=== PATIENT | male | born 1995 | race Caucasian/White ===

== ENCOUNTER 2021-02-01 19:20 | Emergency (ER) | payer OTHER ==
--- NOTE | 2021-02-01 20:40 | ED ---
General Adult HPI - General Source: family, RN notes reviewed Mode of arrival: ambulatory Limitations: language barrier <Ralph Murillo - Last Filed: 02/01/21 20:38> - General Source: patient, family (Parents), RN notes reviewed - History of Present Illness -: days(s) (6) Location: mouth (Sore throat) Associated Symptoms: cough, fever/chills, loss of appetite, other Treatments Prior to Arrival: other (80 minutes and) <Atilio Albright - Last Filed: 02/01/21 23:55> - General Stated complaint: exposed. Time Seen by Provider: 02/01/21 20:39 - History of Present Illness Initial comments: This is a 26-year-old male presents emergency Department with parents chief co mplaint fever. Parents states that his fever has been persistent for 6 days. Patient is autistic repetitive verbal parents state that he has been having a sore throat when he drinks it appears that isn't uncomfortable he's had essentially no significant runny nose cough congestion. Patient denies any vomiting or diarrhea. (Ralph Murillo) 26-year-old autistic white male, presents to the emergency room with his parents. Parents state that he has had a fever of 102 for over 6 days. They've been trying liquid acetaminophen because he cannot take the pills. He is also complaining of a sore throat and a cough. Mother states that the cough is worse at night. He states it difficult to tell if he is in any pain. She states that his oxygen saturation has been low and she is concerned about how low it goes at night. She states she has had a decrease in his appetite. She does not know of any sick contacts, they have been on school break for the past week. Patient is ambulatory in the room with a steady gait. He does have a dry cough. (Atilio Albright) - Related Data Allergies Allergy/AdvReac Type Severity Reaction Status Date / Time No Known Allergies Allergy Verified 02/01/21 20:40 Review of Systems ROS Other: All systems not noted in ROS Statement are negative. <Ralph Murillo - Last Filed: 02/01/21 20:38> ROS Other: All systems not noted in ROS Statement are negative. <Atilio Albright - Last Filed: 02/01/21 23:55> ROS Statement: Those systems with pertinent positive or pertinent negative responses have been documented in the HPI. General Exam Limitations: altered mental status General appearance: alert, in no apparent distress Head exam: Present: atraumatic (Autistic), normocephalic, normal inspection Eye exam: Present: normal appearance, PERRL, EOMI. Absent: scleral icterus, conjunctival injection, periorbital swelling Pupils: Present: normal accommodation ENT exam: Present: normal exam, normal oropharynx, mucous membranes moist Neck exam: Present: normal inspection, full ROM. Absent: tenderness, meningismus, lymphadenopathy Respiratory exam: Present: decreased breath sounds (Likely due to body habitus and poor inspiratory effort). Absent: respiratory distress, wheezes, rales, rhonchi, stridor, chest wall tenderness, accessory muscle use Cardiovascular Exam: Present: tachycardia. Absent: JVD GI/Abdominal exam: Present: soft, normal bowel sounds. Absent: distended, tenderness, guarding, rebound, rigid Extremities exam: Present: normal inspection, full ROM, normal capillary refill. Absent: tenderness, pedal edema, joint swelling, calf tenderness Back exam: Present: normal inspection, full ROM. Absent: tenderness, CVA t enderness (R), CVA tenderness (L), muscle spasm, paraspinal tenderness, vertebral tenderness, rash noted Neurological exam: Present: alert, CN II-XII intact, normal gait Psychiatric exam: Present: normal affect, normal mood Skin exam: Present: warm, dry, intact, normal color. Absent: rash, cyanosis, diaphoretic, petechiae, pallor <Atilio Albright - Last Filed: 02/01/21 23:55> Course Vital Signs 02/01/21 20:36 Temperature 98.6 F Pulse Rate 112 H Respiratory 22 Rate Blood Pressure 126/80 O2 Sat by Pulse 91 L Oximetry Medical Decision Making - Lab Data Result diagrams: 02/01/21 21:13 02/01/21 21:13 <Atilio Albright - Last Filed: 02/01/21 23:55> - Medical Decision Making This is a nontoxic-appearing 26-year-old autistic male. He did test Covid positive in the emergency room today. His symptoms onset was 6 days ago. He does have a BMI is elevated at 35 therefore was a candidate for monoclonal antibodies which she did receive. X-ray is consistent with Covid pneumonia showing increased interstitial opacities. His rapid strep is negative. There is no leukocytosis. His d-dimer is negative. Parents were directed to follow up with her primary care doctor. They were directed to self quarantine from 10 days of symptom onset and 24 hours without fever. Return to the emergency room with any worsening symptoms or difficulty breathing. (Atilio Albright) - Lab Data Lab Results 02/01/21 02/01/21 02/01/21 Range/Units 20:42 21:13 21:13 WBC 5.1 (3.8-10.6) k/uL RBC 5.12 (4.30-5.90) m/uL Hgb 15.5 (13.0-17.5) gm/dL Hct 45.0 (39.0-53.0) % MCV 87.7 (80.0-100.0) fL MCH 30.2 (25.0-35.0) pg MCHC 34.4 (31.0-37.0) g/dL RDW 12.5 (11.5-15.5) % Plt Count 168 (150-450) k/uL MPV 9.2 Neutrophils % 65 % Lymphocytes % 27 % Monocytes % 5 % Eosinophils % 0 % Basophils % 0 % Neutrophils # 3.3 (1.3-7.7) k/uL Lymphocytes # 1.4 (1.0-4.8) k/uL Monocytes # 0.3 (0-1.0) k/uL Eosinophils # 0.0 (0-0.7) k/uL Basophils # 0.0 (0-0.2) k/uL D-Dimer 0.21 (<0.60) mg/L FEU Sodium (137-145) mmol/L Potassium (3.5-5.1) mmol/L Chloride (98-107) mmol/L Carbon Dioxide (22-30) mmol/L Anion Gap mmol/L BUN (9-20) mg/dL Creatinine (0.66-1.25) mg/dL Est GFR (CKD-EPI)AfAm (>60 ml/min/1.73 sqM) Est GFR (CKD-EPI)NonAf (>60 ml/min/1.73 sqM) Glucose (74-99) mg/dL Calcium (8.4-10.2) mg/dL Total Bilirubin (0.2-1.3) mg/dL AST (17-59) U/L ALT (4-49) U/L Alkaline Phosphatase (38-126) U/L Total Protein (6.3-8.2) g/dL Albumin (3.5-5.0) g/dL Urine Color Urine Appearance (Clear) Urine pH (5.0-8.0) Ur Specific [place] (1.001-1.035) Urine Protein (Negative) Urine Glucose (UA) (Negative) Urine Ketones (Negative) Urine Blood (Negative) Urine Nitrite (Negative) Urine Bilirubin (Negative) Urine Urobilinogen (<2.0) mg/dL Ur Leukocyte Esterase (Negative) Urine RBC (0-5) /hpf Urine WBC (0-5) /hpf Ur Squamous Epith Cells (0-4) /hpf Hyaline Casts (0-2) /lpf Urine Mucus (None) /hpf Coronavirus (PCR) Detected A (Not Detectd) Group A Strep Rapid (Negative) 02/01/21 02/01/21 02/01/21 Range/Units 21:13 21:13 21:13 WBC (3.8-10.6) k/uL RBC (4.30-5.90) m/uL Hgb (13.0-17.5) gm/dL Hct (39.0-53.0) % MCV (80.0-100.0) fL MCH (25.0-35.0) pg MCHC (31.0-37.0) g/dL RDW (11.5-15.5) % Plt Count (150-450) k/uL MPV Neutrophils % % Lymphocytes % % Monocytes % % Eosinophils % % Basophils % % Neutrophils # (1.3-7.7) k/uL Lymphocytes # (1.0-4.8) k/uL Monocytes # (0-1.0) k/uL Eosinophils # (0-0.7) k/uL Basophils # (0-0.2) k/uL D-Dimer (<0.60) mg/L FEU Sodium 139 (137-145) mmol/L Potassium 3.8 (3.5-5.1) mmol/L Chloride 105 (98-107) mmol/L Carbon Dioxide 22 (22-30) mmol/L Anion Gap 12 mmol/L BUN 12 (9-20) mg/dL Creatinine 0.74 (0.66-1.25) mg/dL Est GFR (CKD-EPI)AfAm >90 (>60 ml/min/1.73 sqM) Est GFR (CKD-EPI)NonAf >90 (>60 ml/min/1.73 sqM) Glucose 130 H (74-99) mg/dL Calcium 8.8 (8.4-10.2) mg/dL Total Bilirubin 0.6 (0.2-1.3) mg/dL AST 57 (17-59) U/L ALT 55 H (4-49) U/L Alkaline Phosphatase 63 (38-126) U/L Total Protein 7.3 (6.3-8.2) g/dL Albumin 4.2 (3.5-5.0) g/dL Urine Color Yellow Urine Appearance Clear (Clear) Urine pH 6.5 (5.0-8.0) Ur Specific [place] 1.027 (1.001-1.035) Urine Protein 1+ H (Negative) Urine Glucose (UA) Negative (Negative) Urine Ketones 1+ H (Negative) Urine Blood Negative (Negative) Urine Nitrite Negative (Negative) Urine Bilirubin 1+ H (Negative) Urine Urobilinogen 8.0 (<2.0) mg/dL Ur Leukocyte Esterase Negative (Negative) Urine RBC 6 H (0-5) /hpf Urine WBC 5 (0-5) /hpf Ur Squamous Epith Cells <1 (0-4) /hpf Hyaline Casts 4 H (0-2) /lpf Urine Mucus Moderate H (None) /hpf Coronavirus (PCR) (Not Detectd) Group A Strep Rapid Negative (Negative) Disposition <Ralph Murillo - Last Filed: 02/01/21 20:38> Is patient prescribed a controlled substance at d/c from ED?: No <Atilio Albright - Last Filed: 02/01/21 23:55> Clinical Impression: COVID-19 Disposition: HOME SELF-CARE Condition: Good Instructions (If sedation given, give patient instructions): Coronavirus Diseas e 2019 (COVID-19) Additional Instructions: Return to the emergency room with any new or worsening symptoms including difficulty in breathing, chest pain or inability to keep food and fluids down. Follow-up with the primary care doctor next week. Self quarantine for 10 days after symptom onset and must be 24 hours without fever. Referrals: Tawanda Schwartz MD [Primary Care Provider] - 1-2 days
[2021-02-01] MEDS ORDERED: SODIUM CHLORIDE 0.9% 1,000 ML IV STA (21:06)
--- NOTE | 2021-02-01 21:25 | XR ---
EXAMINATION TYPE: XR chest 2V DATE OF EXAM: 02/01/2021 CLINICAL HISTORY: fever. TECHNIQUE: Portable frontal view of the chest. COMPARISON: 06/11/1998 FINDINGS: Low lung volumes. The cardiomediastinal silhouette is within normal limits for size. Pulmo nary vasculature is normal. Increased interstitial opacity. No pleural effusion. No pneumothorax see n. No acute displaced osseous fracture. IMPRESSION: Increased interstitial opacities may be due to low lung volumes, interstitial edema, or atypical pneu monitis including Covid 19.
[2021-02-01 21:59] LABS: Basophils % (A) 0 %; Eosinophils % (A) 0 %; HGB 15.5 gm/dL (13.0-17.5); Lymphocytes # (A) 1.4 k/uL (1.0-4.8); Lymphocytes % (A) 27 %; MCH 30.2 pg (25.0-35.0); MCHC 34.4 g/dL (31.0-37.0); MCV 87.7 fL (80.0-100.0); Mean Platelet Volume 9.2; Monocytes # (A) 0.3 k/uL (0-1.0); Monocytes % (A) 5 %; Neutrophils # (A) 3.3 k/uL (1.3-7.7); Neutrophils % (A) 65 %; Platelet Count 168 k/uL (150-450); RBC 5.12 m/uL (4.30-5.90); RDW 12.5 % (11.5-15.5); WBC 5.1 k/uL (3.8-10.6)
[2021-02-01] MEDS ORDERED: SODIUM CHLORIDE 0.9% 50 ML IVPB ONE (22:00)
[2021-02-01] MEDS ORDERED: CASIRIVIMAB/IMDEVIMAB (EUA) 1,200 MG in SODIUM CHLORIDE 0.9% 100 ML IVPB ONE (22:00)
[2021-02-01 22:09] LABS: Appearance,Urine Clear (Clear); Bilirubin,Urine 1+ (Negative); Blood,Urine Negative (Negative); Color,Urine Yellow; Glucose,Urine (UA) Negative (Negative); Hyaline Casts,Urine 4 /lpf (0-2); Ketones,Urine 1+ (Negative); Leukocyte Esterase,Urine Negative (Negative); Mucus,Urine Moderate /hpf; Nitrite,Urine Negative (Negative); PH, Urine 6.5 (5.0-8.0); Protein,Urine 1+ (Negative); RBC,Urine 6 /hpf (0-5); Specific Gravity,Urine 1.027 (1.001-1.035); Squamous Epithelial Cell,Urine <1 /hpf (0-4); WBC,Urine 5 /hpf (0-5)
[2021-02-01 22:12] LABS: ALT 55 U/L (4-49); AST 57 U/L (17-59); African American GFR (CKD) >90 (>60 ml/min/1.73 sqM); Albumin 4.2 g/dL (3.5-5.0); Alkaline Phosphatase 63 U/L (38-126); Anion Gap 12 mmol/L; Blood Urea Nitrogen 12 mg/dL (9-20); Calcium 8.8 mg/dL (8.4-10.2); Carbon Dioxide 22 mmol/L (22-30); Chloride 105 mmol/L (98-107); Glucose 130 mg/dL (74-99); Non-African American GFR(CKD) >90 (>60 ml/min/1.73 sqM); Potassium 3.8 mmol/L (3.5-5.1); Sodium 139 mmol/L (137-145); Total Bilirubin 0.6 mg/dL (0.2-1.3); Total Protein 7.3 g/dL (6.3-8.2)
[2021-02-02] MEDS ORDERED: ACETAMINOPHEN ORAL SUSP 160 MG/5 ML CUP PO ONE (00:17)
[2021-02-02] MEDS ORDERED: IBUPROFEN ORAL SUSP 100 MG/5 ML CUP PO ONE (00:18)
[2021-02-02 00:25] VITALS: BP 103/72; PULSE 104; RESP 18; TEMP 103
== END 2021-02-02 00:33 | disposition home or self-care (01) ==
LOC: EC 19:20
DX: U07.1 COVID-19 (principal)
CPT/HCPCS: 36415; 85379; 80053; 85025; 81001; 87081; 87430; 87635; 71046; 99283; 96365; 96361; Q0243